=== PATIENT | female | born 1985 | race African-American/Black ===

== ENCOUNTER 2019-08-13 14:20 | Outpatient (CLI) | payer BC, SELFPAY ==
[2019-08-13 15:53] LABS: Beta HCG Quantitative < 2.39 mIU/ML; Hemoglobin A1C 5.5 % (<5.7); Thyroid Stimulating Hormone 0.863 uIU/mL (0.465-4.680)
[2019-08-13 16:26] LABS: Free T4 Free Thyroxine 0.71 ng/mL (0.78-2.19)
[2019-08-16 03:39] LABS: Insulin Level Total 4.9 uIU/mL (<=19.6)
[2019-08-17 00:50] LABS: Testosterone Total 16 ng/dL (2-45)
[2019-08-17 05:48] LABS: Prolactin 8.2 ng/mL (***)
[2019-08-17 14:44] LABS: DHEA-Sulfate 146 mcg/dL (23-266)
== END 2019-08-13 14:21 | disposition home or self-care (01) ==
PROVIDERS: Visit Provider Nurse Practitioner
DX: N93.8 Other specified abnormal uterine and vaginal bleeding (principal)
CPT/HCPCS: 36415; 82627; 83036; 83498; 83525; 84146; 84403; 84439; 84443; 84702

== ENCOUNTER 2019-08-22 09:14 | Outpatient (CLI) | payer BC, SELFPAY ==
--- NOTE | ~2019-08-22 | US_ITS ---
EXAMINATION: US pelvic complete w TV EXAM DATE: 08/22/2019 09:53 INDICATION: Pelvic mass. TECHNIQUE: Pelvic transabdominal and transvaginal sonogram was performed. There are multiple graysca le and Doppler images available for interpretation. There is no prior study for comparison. FINDINGS: Uterus measures 9.5 x 6.9 x 5.2 cm, is anteverted and morphologically normal. Endometrial stripe measures 10 mm, within normal limits. There is no free pelvic fluid. Right adnexa: The ovary measures 2.0 x 2.2 x 1.5 cm and is morphologically normal, with the dominant follicle measuring 2 cm. Ovarian vascular flow confirmed. Left adnexa: The ovary measures 2.5 x 1.6 x 1.3 cm and is morphologically normal. Ovarian vascular fl ow confirmed. IMPRESSION: 1. Unremarkable pelvic ultrasound exam. Reviewed, dictated and finalized at location A.
== END 2019-08-22 09:15 | disposition home or self-care (01) ==
LOC: ANHIMG 09:16
PROVIDERS: Visit Provider Nurse Practitioner
DX: R19.00 Intra-abdominal and pelvic swelling, mass and lump, unspecified site (principal)
CPT/HCPCS: 76830; 76856

== ENCOUNTER 2019-09-16 18:19 | Outpatient (CLI) | payer BC, SELFPAY ==
--- NOTE | ~2019-09-16 | CT_ITS ---
EXAMINATION: CT pelvis w con DATE: 09/16/2019 19:05 INDICATION: Left-sided pelvic mass TECHNIQUE: High resolution computed tomography (CT) of the pelvis was performed with 100 mL Omnipaque -350 intravenous contrast. Additional sagittal and coronal reconstructions were performed. Automated exposure control and iterative reconstruction technique were employed. The dose-length product was 21 9.03 mGy-cm. COMPARISON: 09/17/2017 FINDINGS: The visualized portions of the bowels appear normal. Normal appendix. The visualized caudal tips of t he liver and right kidney are normal. The fundus of the anteverted uterus contacts the inferior left anterior pelvic wall at the level of the transverse section scar and could potentially accou nt for the reported left pelvic mass. Bladder and bilateral adnexa are unremarkable. No free intraper itoneal gas or fluid. No pathologically enlarged pelvic or inguinal lymphadenopathy. Mild spondylosis of the lumbosacral junction. Small bone island at the right sacral ala at S1. Mild bilateral sacroil iac osteoarthritis. IMPRESSION: 1. Unremarkable pelvic CT. No abnormal mass or fluid collections identified. Reviewed, dictated and finalized at location A.
[2019-09-16 18:58] LABS: Estimated Glomerular Filt Rate > 60
== END 2019-09-16 18:20 | disposition home or self-care (01) ==
PROVIDERS: Visit Provider Nurse Practitioner
DX: R10.2 Pelvic and perineal pain (principal)
CPT/HCPCS: 36415; 72193; Q9967

== ENCOUNTER 2020-11-29 09:14 | Outpatient (CLI) | payer BC, SELFPAY ==
--- NOTE | 2020-11-29 12:34 | ECHO_ITS ---
Patient Info Name: Manuela Garcia Age: 35 years : 1985 Gender: Female Ht: 62 in Wt: 145 lbs BSA: 1.71 m2 HR: 86 bpm BP: 133 / 83 mmHg Exam Date: 11/29/2020 2:20 PM Exam Location: [facility] Patient Status: Outpatient Admit Date: 11/29/2020 Staff Ordering Physician: Larissa Anderson Partition Assembler: Luis Rivera RDCS, RT Attending Provider: Larissa Anderson Referring Physician: Monica BURNETT; Exam Type: CA echo doppler color flow Study Info Indications R01.1 - Cardiac murmur, unspecified Complete two-dimensional, color flow and Doppler transthoracic echocardiogram is performed. Strain analysis performed. Summary 1. Complete two-dimensional, color flow and Doppler transthoracic echocardiogram is performed. 2. Left ventricular chamber dimension is normal. 3. Left ventricular systolic function is normal, estimated at 60-65%. 4. The left ventricular diastolic function is normal. 5. E/e' 5 is not elevated. 6. Global longitudinal strain is normal at -17.8%. Left Ventricle E/e' 5 is not elevated. Global longitudinal strain is normal at -17.8%. Left ventricular chamber dimension is normal. Left ventricular systolic function is normal, estimated at 60-65%. The left ventricular diastolic function is normal. Right Ventricle Right ventricular chamber dimension is normal. Right ventricular systolic function is normal. Left Atria Left atrial chamber dimension is normal. Right Atria Right atrial chamber dimension is normal. Aortic Valve The aortic valve is trileaflet. There is no aortic valve stenosis. There is no aortic valve regurgitation. Pulmonic Valve There is no pulmonic regurgitation. Mitral Valve There is no mitral valve stenosis. There is no mitral valve regurgitation. Tricuspid Valve There is no tricuspid valve regurgitation. Pericardium/Pleural There is no pericardial effusion. Inferior Vena Cava Normal inferior vena cava with >50% collapse upon inspiration consistent with normal right atrial pressure, 5 mmHg. Aorta The aortic root size at the sinus of Valsalva is normal. Left Ventricular Outflow Tract Name Value Normal LVOT 2D LVOT Diameter 2.0 cm LVOT Doppler LVOT Peak Gradient 5 mmHg LVOT Mean Gradient 2 mmHg LVOT VTI 19 cm LVOT VTI/AV VTI Ratio 0.8 LVOT Stroke Volume 63 ml LVOT CO 5.3 l/min LVOT CI 3.1 l/min/m2 Mitral Valve Name Value Normal MV Doppler MV Decel [place] 352 cm/s2 MV PHT 60 ms MV Area (PHT) 3.7 cm2 4.0-5.0 MV Diastolic Function
== END 2020-11-29 09:15 | disposition home or self-care (01) ==
LOC: ANHCARD 09:18
PROVIDERS: Visit Provider Nurse Practitioner
DX: R01.1 Cardiac murmur, unspecified (principal)
CPT/HCPCS: 93306

== ENCOUNTER 2020-12-01 08:12 | Outpatient (CLI) | payer BC, SELFPAY ==
[2020-12-01 09:15] LABS: Alanine Aminotransferase 10 U/L (4-35); Albumin Level 4.1 g/dL (3.5-5.1); Alkaline Phosphatase 66 U/L (38-126); Anion Gap 7 mmol/L (8-16); Aspartate Amino Transferase 24 U/L (14-36); Bilirubin,Total 0.5 mg/dL (0.2-1.3); Blood Urea Nitrogen 6 mg/dL (7-17); Calcium 8.8 mg/dL (8.4-10.2); Carbon Dioxide 23 mmol/L (22-30); Chloride 108 mmol/L (98-107); Cholesterol 177 mg/dL (0-200); Estimated Glomerular Filt Rate > 60; Glucose 99 mg/dL (65-110); HDL Direct 49 mg/dL; Sodium 138 mmol/L (137-145); Triglycerides 71 mg/dL (<150)
[2020-12-01 09:27] LABS: LDL Cholesterol Direct 89 mg/dL
[2020-12-01 09:45] LABS: Thyroid Stimulating Hormone 0.402 uIU/mL (0.465-4.680)
[2020-12-01 09:47] LABS: Hemoglobin A1C 5.4 % (<5.7)
[2020-12-01 10:55] LABS: Vitamin D 25 Hydroxy 16.9 ng/mL
== END 2020-12-01 08:13 | disposition home or self-care (01) ==
LOC: ANHLAB 08:14
PROVIDERS: Visit Provider Nurse Practitioner
DX: Z13.1 Encounter for screening for diabetes mellitus (principal); Z13.21 Encounter for screening for nutritional disorder; Z13.220 Encounter for screening for lipoid disorders; Z13.29 Encounter for screening for other suspected endocrine disorder; Z13.6 Encounter for screening for cardiovascular disorders
CPT/HCPCS: 36415; 80053; 80061; 82306; 83036; 84443

== ENCOUNTER 2021-01-25 14:17 | Outpatient (CLI) | payer BC, SELFPAY ==
--- NOTE | ~2021-01-25 | US_ITS ---
US thyroid INDICATION: Abnormal lab thyroid studies TECHNIQUE: Real-time sonographic images of the thyroid gland were obtained. COMPARISON: No prior studies for comparison. FINDINGS: The right thyroid lobe measures 5.6 x 1.8 x 1.8 cm. The left thyroid lobe measures 6.6 x 2 .3 x 2.3 cm. There is normal echotexture and echogenicity throughout the thyroid gland. No discrete n odules identified. Increased vascular flow is present. IMPRESSION: 1. Mildly enlarged hypervascular thyroid gland without discrete mass. Reviewed, dictated and finalized at location A. [facility]
[2021-01-25 16:12] LABS: Rubella IgG Antibody 35.8 IU/ML
== END 2021-01-25 14:18 | disposition home or self-care (01) ==
PROVIDERS: PCP Internal Medicine; Visit Provider Nurse Practitioner
DX: R79.89 Other specified abnormal findings of blood chemistry (principal); Z11.9 Encounter for screening for infectious and parasitic diseases, unspecified
CPT/HCPCS: 36415; 76536; 86762; 86765

== ENCOUNTER → 2021-03-31 02:07 | Outpatient (CLI) | payer BC, SELFPAY ==
[2021-03-31 17:32] LABS: Influenza A QL RT-PCR Negative (Negative); Influenza B QL RT-PCR Negative (Negative); SARS-CoV-2 RNA PCR Negative
== END ==
PROVIDERS: PCP Internal Medicine; Visit Provider Internal Medicine
DX: Z20.822 Contact with and (suspected) exposure to COVID-19 (principal)
CPT/HCPCS: 87502; 87804; C9803; U0003; U0005

== ENCOUNTER 2021-08-05 14:07 | Emergency (ER) | payer BC, SELFPAY ==
--- NOTE | ~2021-08-05 | US_ITS ---
EXAMINATION: US pelvic complete w TV DATE: 08/05/2021 16:13 INDICATION: pelvic pain TECHNIQUE: Multiple transabdominal and endovaginal sonographic images of the pelvis were obtained. COMPARISON: None. FINDINGS: Uterus: 9.1 x 7.3 x 4.8 cm. Endometrial complex measures 1.5 cm., Distended by endometrial fluid. Right Ovary: 3.0 x 2.0 x 2.0 cm. Vascular flow is present. Numerous follicles. Left Ovary: 4.2 x 3.8 x 3.6 cm. Vascular flow is present. 3.0 cm circumscribed hypoechoic left ovaria n lesion, likely resolving hemorrhagic cyst. There is no free fluid in the pelvis. IMPRESSION: 1. Endotracheal cavity distended by fluid. 2. 3 cm likely hemorrhagic left ovarian cyst. Reviewed, dictated and finalized at location K.
[2021-08-05 14:14] VITALS: BP 150/87; PULSE 94; RESP 25; TEMP 37.1; O2SAT 100
[2021-08-05] MEDS: SODIUM CHLORIDE 0.9% IV 1,000 ML 999 ML IV CONT (14:28)
[2021-08-05] MEDS: KETOROLAC 30 MG/ML VIAL (*BKC) IV PUSH (14:28)
[2021-08-05] MEDS: ONDANSETRON INJ 4 MG/2 ML VIAL IV PUSH ×2 (14:28→16:51)
[2021-08-05 14:32] LABS: Basophils Percent Auto 0.5 % (0.2-1.2); Eosinophils Percent Auto 0.5 % (0-4.4); Hemoglobin 12.4 g/dL (12.0-15.0); Immature Granulocyte Absolute 0.03 K/mm3 (0.00-0.031); Immature Granulocyte Percent A 0.4 % (0-0.5); Lymphocytes Absolute Auto 0.77 K/mm3 (0.9-3.2); Lymphocytes Percent Auto 9.9 % (18.3-44.2); Mean Corpuscular HGB Conc 31.8 g/dl (32-36); Mean Corpuscular Hemoglobin 27.6 pg (26-34); Mean Corpuscular Volume 86.7 fl (80-100); Mean Platelet Volume 8.6 fl (7.4-10.4); Monocytes Absolute Auto 1.4 K/mm3 (0.1-0.6); Monocytes Percent Auto 17.9 % (2.6-8.5); Neutrophils Absolute Auto 5.5 K/mm3 (1.3-6.7); Neutrophils Percent Auto 70.8 % (45.5-73.1); Platelet Count Result 280 k/mm3 (150-375); White Blood Count 7.8 K/mm3 (4.5-10.0)
--- NOTE | 2021-08-05 14:35 | ED.GENADULT ---
HPI - General Adult General Chief complaint: Abdominal Pain Stated complaint: leg pain Time Seen by Provider: 08/05/21 14:12 Source: patient Mode of arrival: ambulatory Limitations: no limitations History of Present Illness HPI narrative: This is a 35 year old female who presents for evaluation of lower abdominal pain. Patient's is at bedside to help with history. He states patient developed sudden onset lower back pain and lower abdominal pain 2 hours ago. She also states this pain is making both of her legs hurt. She has been having nausea and vomiting. She took ibuprofen just prior to arrival. She states she has never had pain this bad before. She denies abnormal vaginal discharge or bleeding. Her last menstrual period was 2 weeks ago. Related Data Allergies Allergy/AdvReac Type Severity Reaction Status Date / Time clindamycin Allergy Severe y Verified 11/06/20 09:34 tramadol Allergy Severe y Verified 11/06/20 09:34 famotidine Allergy Unknown y Verified 11/06/20 09:34 Review of Systems Review of Systems: All systems reviewed & are unremarkable except as noted in HPI and below Constitutional: Constitutional: Denies chills and Denies fever(s) Respiratory: Respiratory: Denies cough and Denies dyspnea Gastrointestinal: Gastrointestinal: Reports abdominal pain, Denies diarrhea, Reports nausea and Reports vomiting Genitourinary: Genitourinary: Denies abnormal vaginal bleeding, Denies hematuria, Denies dysuria, Reports pelvic pain and Denies vaginal discharge Musculoskeletal: Musculoskeletal: Reports back pain Neurologic: Denies focal weakness, Denies numbness and Denies weakness PMFSH Past Medical History Medical History (Updated 08/05/21 @ 21:13 by Madiha Singer MD) Ovarian cyst Surgical History Surgical History (Updated 11/06/20 @ 09:38 by HETAL Cerrato) Hx of section Hx of tubal ligation Family History Family History Mother Patient's mother is in good health Mother Asthma Sibling Asthma Son Asthma Social History Social History Smoking status: Current every day smoker Second hand tobacco smoke exposure: No Alcohol intake: current Substance use: never Exam Const: General: alert Orientation/consciousness: patient oriented x3 Other: patient is hyperventilating and restless due to pain. Eyes: EOM: EOMs intact bilaterally Neck: Neck: normal visual inspection Chest: Chest palpation & inspection: normal inspection of the chest Resp: Effort & Inspection: normal respiratory effort and no retractions Auscultation: clear to auscultation bilaterally Cardio: Rate: regular rate Rhythm: regular rhythm Heart sounds: no murmurs GI: GI Palp: Yes Soft to palpation, No Tenderness to palpation present (GI) and No Guarding due to palpation present (GI) Auscultation: normal bowel sounds : General: Yes no CVA tenderness Speculum Exam - Cervix: normal appearance of the cervix and Cervical os closed Bimanual exam- vagina & uterus: no cervical motion tenderness Bimanual Exam- Adnexa, other: tender on the left Back/Spine/Pelvis: Back: no CVA tenderness Skin: General skin exam: normal color Rashes: no rashes Neuro: General: patient oriented x3, moves all extremities and CN's II-XI intact bilaterally Extrem: General: normal to inspection and no pedal edema Psych: Affect: Anxious affect present Course Reevaluation(s) Reevaluation #1: PAtient states she feels better . She still has lower abdominal pain and back pain. she no longer has pain radiating down her legs. Date: 08/05/21 Time: 15:40 Consultations Consultation #1: I discussed case with Dr. Bah. She states for patient to call on friday for hemorrhagic cyst. Patient states she feels better. Exam at his time not consistent with PID. Date: 08/05/21 Time: 17:28 Vital
[2021-08-05 14:45] LABS: Alanine Aminotransferase 14 U/L (6-35); Albumin Level 4.6 g/dL (3.5-5.1); Alkaline Phosphatase 89 U/L (38-126); Anion Gap 13 mmol/L (8-16); Aspartate Amino Transferase 32 U/L (14-36); Bilirubin,Total 0.3 mg/dL (0.2-1.3); Blood Urea Nitrogen 6 mg/dL (7-17); Carbon Dioxide 19 mmol/L (22-30); Chloride 104 mmol/L (98-107); Estimated CRCL calculation 77 ml/min; Estimated Glomerular Filt Rate > 60; Glucose 108 mg/dL (65-110); Potassium 3.9 mmol/L (3.4-5.0); Sodium 136 mmol/L (137-145)
[2021-08-05 15:08] VITALS: BP 124/77; PULSE 88; RESP 25; O2SAT 97
[2021-08-05 15:29] LABS: Appearance Urine Clear (Clear); Bilirubin Urine Negative (Negative); Blood Urine 2+ (Negative); Color Urine Yellow (Yellow); Glucose Urine UA Negative (Negative); Ketones Urine Negative (Negative); Leukocyte Esterase Ur Negative LEU/UL (Negative); Nitrate Urine Negative (Negative); Protein Urine Negative (Negative); pH Urine 6.5 (5.0-9.0)
[2021-08-05 15:34] LABS: Mucus Urine Moderate /lpf; Squamous Epithelial Cell Urine Few /hpf (Few); WBC Urine 0-3 /hpf
[2021-08-05 15:35] LABS: Add Urine Microscopic? YES
--- NOTE | 2021-08-05 15:58 | PC.NURSE ---
pt in ultrasound at this time.
[2021-08-05] MEDS: MORPHINE SULFATE (*CRX) 4 MG/ML INJ IV PUSH (16:52)
[2021-08-05 17:09] VITALS: BP 124/73; PULSE 67; RESP 19; O2SAT 98
[2021-08-05 17:43] VITALS: BP 119/82; PULSE 71; RESP 15; O2SAT 98
== END 2021-08-05 17:46 | disposition home or self-care (01) ==
PROVIDERS: Emergency Provider General Practice; PCP Internal Medicine
DX: N83.202 Unspecified ovarian cyst, left side (principal); F17.200 Nicotine dependence, unspecified, uncomplicated
CPT/HCPCS: 36415; 76830; 76856; 80053; 81001; 81025; 85025; 87070; 87491; 87591; 87808; 96361; 96374; 96375; 96376; 99284; J1885; J2270; J2405; J7030

== ENCOUNTER 2021-10-15 10:56 | Outpatient (CLI) | payer BC, SELFPAY ==
[2021-10-15 12:34] LABS: Appearance Urine Clear (Clear); Bilirubin Urine Negative (Negative); Color Urine Yellow (Yellow); Glucose Urine UA Negative (Negative); Ketones Urine Trace mg/dL (Negative); Leukocyte Esterase Ur Negative LEU/UL (Negative); Nitrate Urine Negative (Negative); Protein Urine Negative (Negative); pH Urine 6.5 (5.0-9.0)
[2021-10-15 12:37] LABS: Mucus Urine Moderate /lpf; Squamous Epithelial Cell Urine Occasional /hpf (Few); WBC Urine 0-3 /hpf
[2021-10-15 12:41] LABS: Add Urine Microscopic? YES; Blood Urine Trace-Intact (Negative)
== END 2021-10-15 10:57 | disposition home or self-care (01) ==
PROVIDERS: PCP Internal Medicine; Visit Provider Internal Medicine
DX: R10.2 Pelvic and perineal pain (principal)
CPT/HCPCS: 81001

== ENCOUNTER 2021-10-17 16:23 | Outpatient (CLI) | payer BC, SELFPAY ==
--- NOTE | ~2021-10-17 | CT_ITS ---
EXAMINATION: CT pelvis wo con DATE: 10/17/2021 16:42 INDICATION: Pelvic and perineal pain. TECHNIQUE: Computed tomography (CT) of the pelvis was performed without intravenous contrast. Automat ed exposure control and iterative reconstruction technique were employed. The dose-length product was 307.47 mGy-cm. COMPARISON: CT pelvis 09/16/2019, ultrasound pelvis 08/05/2021 FINDINGS: There are no dilated loops of bowel. There is physiologic fluid in the pelvis. Left-sided h ydrosalpinx is noted. There are no pathologically enlarged lymph nodes. There is mild lumbar spondylo sis. IMPRESSION: 1. Left-sided hydrosalpinx. Reviewed, dictated and finalized at location A. IMPRESSION: 1. Left-sided hydrosalpinx.
== END 2021-10-17 16:24 | disposition home or self-care (01) ==
LOC: ANHIMG 16:24
PROVIDERS: PCP Internal Medicine; Visit Provider Internal Medicine
DX: R10.2 Pelvic and perineal pain (principal); N70.11 Chronic salpingitis
CPT/HCPCS: 72192

== ENCOUNTER → 2021-11-02 10:13 | Outpatient (CLI) | payer BC, SELFPAY ==
--- NOTE | ~2021-11-02 | US_ITS ---
EXAMINATION: US pelvic complete w TV DATE: 11/02/2021 11:10 INDICATION: Abnormal CT. Previous bilateral salpingectomy. Comparison:Ultrasound dated 08/05/[address] dated 10/17/2021 TECHNIQUE: Multiple transabdominal and endovaginal sonographic images of the pelvis performed. FINDINGS: The uterus measures 8.7 x 5 x 5.8 cm. The endometrial complex measures 8 mm. The right ovary measures 2.9 x 1.1 x 2.2 cm and the left ovary measures 3.4 x 1.6 x 1.5 cm. There is left ovarian cyst measuring 1.9 cm. There are small follicles in each ovary. Normal doppler signal in both ovaries. In the left adnexa superiorly there is a fluid-filled tubular structure. Per clinical history patient had previous bilateral salpingectomy. There is no free fluid in the pelvis. There are no abnormal masses seen on either side. IMPRESSION: 1. Tubular structure left adnexa superiorly. Previous surgical history of salpingectomy ruling out hy drosalpinx. Consider complicated paraovarian cyst, endometrioma and complicated exophytic ovarian cys t. Reviewed, dictated and finalized at location B. IMPRESSION: 1. Tubular structure left adnexa superiorly. Previous surgical history of salpi ngectomy ruling out hydrosalpinx. Consider complicated paraovarian cyst, endome trioma and complicated exophytic ovarian cyst.
== END ==
PROVIDERS: PCP Internal Medicine; Visit Provider Obstetrics & Gynecology Gynecology
DX: N83.202 Unspecified ovarian cyst, left side (principal)
CPT/HCPCS: 76830; 76856

== ENCOUNTER 2022-01-22 09:35 | Emergency (ER) | payer OTHER, BC, SELFPAY ==
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
[2022-01-22 09:47] VITALS: BP 142/88; PULSE 88; RESP 18; TEMP 36.4; O2SAT 98
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
[2022-01-22 10:46] LABS: Basophils Absolute Auto 0.1 K/mm3 (0.0-0.1); Basophils Percent Auto 0.6 % (0.2-1.2); Eosinophils Absolute Auto 0.2 K/mm3 (0-0.3); Eosinophils Percent Auto 1.4 % (0-4.4); Hematocrit 38.1 % (37.0-47.0); Hemoglobin 12.1 g/dL (12.0-15.0); Immature Granulocyte Absolute 0.02 K/mm3 (0.00-0.031); Immature Granulocyte Percent A 0.2 % (0-0.5); Lymphocytes Absolute Auto 2.73 K/mm3 (0.9-3.2); Lymphocytes Percent Auto 25.1 % (18.3-44.2); Mean Corpuscular HGB Conc 31.8 g/dl (32-36); Mean Corpuscular Hemoglobin 27.6 pg (26-34); Mean Corpuscular Volume 86.8 fl (80-100); Mean Platelet Volume 8.6 fl (7.4-10.4); Monocytes Absolute Auto 0.7 K/mm3 (0.1-0.6); Monocytes Percent Auto 6.1 % (2.6-8.5); Neutrophils Absolute Auto 7.2 K/mm3 (1.3-6.7); Neutrophils Percent Auto 66.6 % (45.5-73.1); Platelet Count Result 373 k/mm3 (150-375); Red Blood Count 4.39 M/mm3 (4.2-5.4); Red Cell Distribution Width 20.5 % (11.5-14.5); White Blood Count 10.9 K/mm3 (4.5-10.0)
[2022-01-22 10:50] LABS: Appearance Urine Clear (Clear); Bilirubin Urine Negative (Negative); Blood Urine 1+ (Negative); Color Urine Yellow (Yellow); Glucose Urine UA Negative (Negative); Ketones Urine Negative (Negative); Leukocyte Esterase Ur Negative LEU/UL (Negative); Nitrate Urine Negative (Negative); Protein Urine Negative (Negative); Specific Grav Ur 1.025 (1.001-1.035)
[2022-01-22 10:55] LABS: Alanine Aminotransferase 13 U/L (6-35); Albumin Level 4.4 g/dL (3.5-5.1); Alkaline Phosphatase 68 U/L (38-126); Anion Gap 14 mmol/L (8-16); Aspartate Amino Transferase 23 U/L (14-36); Bilirubin,Total 0.2 mg/dL (0.2-1.3); Blood Urea Nitrogen 4 mg/dL (7-17); Calcium 8.7 mg/dL (8.4-10.2); Carbon Dioxide 24 mmol/L (22-30); Chloride 105 mmol/L (98-107); Estimated CRCL calculation 75 ml/min; Estimated Glomerular Filt Rate > 60; Glucose 93 mg/dL (65-110); Lipase 50 U/L (23-300); Potassium 3.2 mmol/L (3.4-5.0); Sodium 143 mmol/L (137-145)
[2022-01-22 11:00] LABS: Mucus Urine Heavy /lpf; Squamous Epithelial Cell Urine Rare /hpf (Few); WBC Urine 0-3 /hpf
[2022-01-22 11:05] LABS: Add Urine Microscopic? YES
[2022-01-22] MEDS: ACETAMINOPHEN 500 MG TABLET 1000 MG PO (12:17)
== END 2022-01-22 12:43 | disposition home or self-care (01) ==
PROVIDERS: Emergency Provider Emergency Medicine; PCP Internal Medicine
DX: S20.211A Contusion of right front wall of thorax, initial encounter (principal); F17.200 Nicotine dependence, unspecified, uncomplicated; V43.52XA Car driver injured in collision with other type car in traffic accident, initial encounter
CPT/HCPCS: 36415; 71101; 74177; 80053; 81001; 81025; 83690; 85025; 99284; A9270; Q9967

== ENCOUNTER 2022-11-27 14:34 | Emergency (ER) | payer BC, SELFPAY ==
[2022-11-27 15:05] VITALS: BP 144/73; PULSE 60; RESP 18; TEMP 36.6; O2SAT 98
[2022-11-27 15:32] LABS: Basophils Absolute Auto 0.1 K/mm3 (0.0-0.1); Basophils Percent Auto 0.6 % (0.2-1.2); Eosinophils Percent Auto 0.1 % (0-4.4); Hematocrit 36.5 % (37.0-47.0); Hemoglobin 11.5 g/dL (12.0-15.0); Immature Granulocyte Absolute 0.04 K/mm3 (0.00-0.031); Immature Granulocyte Percent A 0.4 % (0-0.5); Lymphocytes Absolute Auto 1.88 K/mm3 (0.9-3.2); Mean Corpuscular HGB Conc 31.5 g/dl (32-36); Mean Corpuscular Hemoglobin 26.4 pg (26-34); Mean Corpuscular Volume 83.7 fl (80-100); Mean Platelet Volume 8.9 fl (7.4-10.4); Monocytes Absolute Auto 0.5 K/mm3 (0.1-0.6); Monocytes Percent Auto 5.3 % (2.6-8.5); Neutrophils Absolute Auto 6.9 K/mm3 (1.3-6.7); Neutrophils Percent Auto 73.6 % (45.5-73.1); Platelet Count Result 341 k/mm3 (150-375); Red Blood Count 4.36 M/mm3 (4.2-5.4); Red Cell Distribution Width 19.9 % (11.5-14.5); White Blood Count 9.4 K/mm3 (4.5-10.0)
[2022-11-27 15:41] LABS: Appearance Urine Clear (Clear); Bacteria Urine None Seen /hpf; Bilirubin Urine Negative (Negative); Blood Urine 2+ (Negative); Color Urine Yellow (Yellow); Glucose Urine UA Negative (Negative); Ketones Urine 1+ mg/dL (Negative); Leukocyte Esterase Ur Negative LEU/UL (Negative); Nitrate Urine Negative (Negative); Non Pathogenic Casts 0-2; Protein Urine 1+ mg/dL (Negative); RBC Urine 21-50 /hpf (0-2); Squamous Epithelial Cell Urine None seen /hpf (Few); WBC Urine 0-5 /hpf
[2022-11-27 15:42] LABS: Alanine Aminotransferase 18 U/L (6-35); Albumin Level 4.7 g/dL (3.5-5.1); Alkaline Phosphatase 87 U/L (38-126); Anion Gap 10 mmol/L (8-16); Aspartate Amino Transferase 35 U/L (14-36); Bilirubin,Total 0.3 mg/dL (0.2-1.3); Blood Urea Nitrogen 7 mg/dL (7-17); Calcium 9.2 mg/dL (8.4-10.2); Carbon Dioxide 23 mmol/L (22-30); Chloride 109 mmol/L (98-107); Estimated CRCL calculation 85 ml/min; Estimated Glomerular Filt Rate > 60; Glucose 129 mg/dL (65-110); Lipase 57 U/L (23-300); Potassium 3.7 mmol/L (3.4-5.0); Sodium 142 mmol/L (137-145)
[2022-11-27 15:48] LABS: Add Urine Microscopic? YES
[2022-11-27] MEDS: SODIUM CHLORIDE 0.9% IV 1,000 ML 999 ML IV CONT ×2 (16:22→17:26)
[2022-11-27] MEDS: ONDANSETRON INJ 4 MG/2 ML VIAL IV PUSH (16:22)
--- NOTE | 2022-11-27 16:24 | ED.NAVMDI ---
HPI - Nausea/Vomiting/Diarrhea General Chief complaint: Nausea/Vomiting/Diarrhea Stated complaint: Vomitting Time Seen by Provider: 11/27/22 16:05 History of Present Illness HPI Narrative: 37-year-old female presents to the emergency room for nausea vomiting and diarrhea associated with diffuse abdominal pain. Patient denies any fevers. Patient states multiple individuals close to her have similar symptoms. Patient states that she had multiple episodes of nonbloody and bilious vomiting. Denies any blood in her stools Related Data Allergies Allergy/AdvReac Type Severity Reaction Status Date / Time clindamycin Allergy Severe y Verified 11/04/22 09:52 tramadol Allergy Severe y Verified 11/04/22 09:52 famotidine Allergy Unknown y Verified 11/04/22 09:52 Review of Systems Review of Systems: CONSTITUTIONAL: Denies fever, chills, or sweats. EYES: Denies visual changes, redness, or discharge. ENT: Denies rhinorrhea, congestion, sore throat, or otalgia. CARDIOVASCULAR: Denies chest pain, palpitations, or edema. RESPIRATORY: Denies cough or dyspnea. GASTROINTESTINAL: Reports abdominal pain, nausea, vomiting, and diarrhea. GENITOURINARY: Denies dysuria or hematuria. SKIN: Denies rash or itching. MUSCULOSKELETAL: Denies back pain, joint pain, or myalgia. NEUROLOGIC: Denies headache, numbness, dizziness, or weakness. PSYCHIATRIC: Denies anxiety or depression. [facility] Past Medical History Medical History Ovarian cyst Surgical History Surgical History Hx of section Hx of tubal ligation Family History Family History Mother Patient's mother is in good health Mother Asthma Sibling Asthma Son Asthma Social History Social History Smoking status: Current every day smoker Tobacco type: cigarettes Second hand tobacco smoke exposure: No Alcohol intake: current Substance use: never Lack of Transportation: No Lack of Food: Never True Current Housing: I Have Housing Concerned About Future Housing: No Difficulty Paying Gas/Electric Bills: No Difficulty Paying for Meds: No Currently Unemployed: No Education: High School Diploma/GED Difficulty w/ Childcare or Family Care: YES Exam Narrative: GENERAL: ill-appearing, well-nourished, no physical limitations, and in mild acute distress. HEAD: Normocephalic, atraumatic. EYES: Conjunctivae normal, PERRLA and EOMI. CHEST: Clear to auscultation. No respiratory distress. No wheezes rales or rhonchi. HEART: Regular rate and rhythm. No murmur heard. Normal peripheral pulses. ABDOMEN: Soft, umbilical tenderness, nondistended, normal active bowel sounds. BACK: No CVA tenderness; EXTREMITIES: Normal range of motion. No edema. No clubbing or cyanosis SKIN: Warm, dry, no rash. No noted wounds NEURO: No focal deficits. Alert and oriented x3. MAEW. CN's II-XI intact bilaterally, normal gait PSYCH: Cooperative. Normal mood and affect. Course Vital Signs Vital signs: Vital Signs Temperature 36.6 C 11/27/22 15:05 Pulse Rate 60 11/27/22 15:05 Respiratory Rate 18 11/27/22 15:05 Blood Pressure 144/73 H 11/27/22 15:05 Pulse Oximetry 98 11/27/22 15:05 Oxygen Delivery Room Air 11/27/22 15:05 Temperature 36.6 C 11/27/22 15:05 Pulse Rate 60 11/27/22 15:05 Respiratory Rate 18 11/27/22 15:05 Blood Pressure 144/73 H 11/27/22 15:05 Pulse Oximetry 98 11/27/22 15:05 Oxygen Delivery Room Air 11/27/22 15:05 MDM - Nausea/Vomiting/Diarrhea Lab Data 11/27/22 15:20 11/27/22 15:20 Labs: Lab Results 11/27/22 Range/Units 15:20 WBC 9.4 (4.5-10.0) K/mm3 RBC 4.36 (4.2-5.4) M/mm3 Hgb 11.5 L (12.0-15.0) g/dL Hct 36.5 L (37.0-47.0) % MCV 83.7 (80-
[2022-11-27] MEDS: DICYCLOMINE HCL INJ 20 MG/2 ML VIAL IM (16:44)
== END 2022-11-27 18:28 | disposition home or self-care (01) ==
PROVIDERS: Emergency Medicine; Emergency Provider Nurse Practitioner Family; PCP Nurse Practitioner Family
DX: K52.9 Noninfective gastroenteritis and colitis, unspecified (principal); F17.210 Nicotine dependence, cigarettes, uncomplicated
CPT/HCPCS: 36415; 80053; 81001; 81025; 83690; 85025; 96361; 96372; 96374; 99284; J0500; J2405; J7030

== ENCOUNTER 2023-07-25 12:16 | Outpatient (CLI) | payer BC, SELFPAY ==
--- NOTE | ~2023-07-25 | MM_ITS ---
EXAMINATION: MM diagnostic denisa BI w braydon HISTORY: Infection of left breast TECHNIQUE: ML, MLO and CC 3-D tomosynthesis images of both breasts were performed and synthetic 2-D i mages were generated. CAD analysis was submitted and interpreted. COMPARISON: None BREAST PARENCHYMAL COMPOSITION: The breasts are heterogeneously dense, which may obscure small masses . FINDINGS: No suspicious mass or architectural distortion, malignant calcification, skin thickening or retraction is detected. IMPRESSION: 1. Negative bilateral mammogram 2. Routine annual mammographic screening beginning at age 40 is recommended BI-RADS Category 1: Negative Reviewed, dictated and finalized at location B.
== END 2023-07-25 12:17 | disposition home or self-care (01) ==
LOC: ANHIMG 12:17
PROVIDERS: PCP Nurse Practitioner Family; Visit Provider Nurse Practitioner
DX: N64.59 Other signs and symptoms in breast (principal)
CPT/HCPCS: 77062; 77066; G0279